=== PATIENT | male | born 1995 | race Two or more races ===

== ENCOUNTER 2021-02-15 09:04 | Emergency (ER) | payer SELFPAY ==
[~2021-02-15] VITALS: Ht 193 cm; Wt 113.4 kg
[2021-02-15 09:29] VITALS: BP 120/77
== END 2021-02-15 10:17 | disposition left against medical advice (07) ==
LOC: ER 09:04 → EDBD 09:04 → ER 10:17
DX: R10.31 Right lower quadrant pain (principal); R11.10 Vomiting, unspecified; Z53.21 Procedure and treatment not carried out due to patient leaving prior to being seen by health care provider
CPT/HCPCS: 93005